=== PATIENT | male | born 1990 | race Caucasian/White ===

== ENCOUNTER 2016-08-17 21:06 | Inpatient (IN) | payer OTHER ==
--- NOTE | ~2016-08-17 | HP ---
Unit #: [id number] #: [id number] Patient: CASSIE BROWNE [id number] [facility] [address] [place] [address] [id number] I MR#: [id number] NAME: CASSIE BROWNE. ROOM: 73 Age: 25 Sex: M Admission Date: 08/18/2016 : 1990 Attending Physician: Jak Lopez M.D. Admitting Physician: Jka Lopez M.D. Primary Care Physician: Primary Care Physician No HISTORY AND PHYSICAL HISTORY OF PRESENT ILLNESS The patient is a 25-year-old man, who has been admitted to [facility] for suicidal ideation and detox from heroin, alcohol, meth, and Xanax. PAST MEDICAL HISTORY None. PAST SURGICAL HISTORY Sinus surgery. ALLERGIES No known drug allergies. MEDICATIONS 1. Amoxicillin 2. Clavulanate 500/125 mg p.o. b.i.d. FAMILY HISTORY Medically noncontributory. SOCIAL HISTORY The patient is unemployed and homeless. He endorses tobacco and some alcoholism, heroin, Xanax, and meth use. REVIEW OF SYSTEMS CONSTITUTIONAL: The patient denies fever and chills. HEENT: The patient denies any sore throat, ear pain or runny nose. CARDIOVASCULAR: The patient denies chest pain, irregular heart rhythm or palpitations. CHEST: The patient denies shortness of breath or cough. No hemoptysis. GASTROINTESTINAL: The patient denies diarrhea or chronic constipation, endorses nausea and vomiting. ENDOCRINE: Denies history of increased thirst or urination. No recent significant weight loss or gain. GENITOURINARY: Denies dysuria, frequency, or hematuria. SKIN: Denies any rashes. HEMATOLOGIC: Denies history of increased bleeding or bruising. MUSCULOSKELETAL: Denies any hot, swollen joints. No generalized muscle pain. NEUROLOGIC: Denies problems with vision or speech. No frequent, severe headaches. No numbness, tingling or weakness in any extremities. Denies loss of bladder or bowel control. Unit #: [id number] #: [id number] Patient: CASSIE BROWNE PHYSICAL EXAMINATION GENERAL: The patient is arousable in no acute distress. VITAL SIGNS: His vital signs are, temperature 98.5, heart rate 69, respirations 18, and blood pressure 111/64. WEIGHT: 140 pounds. HEIGHT: 6 feet. SKIN: Warm and dry without rash or lesion. HEENT: Head; Atraumatic and normocephalic. Pupils round and reactive. Extraocular movements are intact. No drainage from ears or nares. NECK: Supple. Trachea is midline. HEART: Regular rate and rhythm. LUNGS: Clear. ABDOMEN: Soft, nontender. Nondistended. : Not done. SKIN: Warm and dry without any unusual rashes, bruises. EXTREMITIES: No clubbing, edema, or cyanosis. NEUROLOGICAL: Cranial Nerves: II-XII intact. No focal deficits. Sensory and Motor Function: Grossly normal. Coordination: Gait is normal. Deep Tendon Reflexes: Intact. IMPRESSION Psychiatric admission. RECOMMENDATIONS Psychiatric, will be per psychiatrist. MEDICAL I see no contraindications to participating in facility's activities. MEDICAL PROGNOSIS Fair. MEDICAL CONDITION Stable. Dictated by... Calli Raza A.P.R.N. AM/rufus TD: 08/18/2016 10:48 JOB #: [id number] Unit #: [id number] #: [id number] Patient: CASSIE BROWNE HISTORY AND PHYSICAL Page 1 of 1 X Calli Raza APRN X HISTORY AND PHYSICAL
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
--- NOTE | ~2016-08-17 | DS ---
Unit #: [id number] #: [id number] Patient: CASSIE BROWNE [id number] [facility] [address] [place] [address] [id number] I MR#: [id number] NAME: CASSIE BROWNE. ROOM: 73 Age: 25 Sex: M Admission Date: 08/18/2016 : 1990 Discharge Date: 08/22/2016 Attending Physician: Jak Lopez M.D. Primary Care Physician: Primary Care Physician No DISCHARGE SUMMARY REASON FOR ADMISSION Detox. DIAGNOSTIC STUDIES LABORATORY RESULTS: Unremarkable. HOSPITAL COURSE The patient was admitted to inpatient unit on 08/18/2016 and discharged on 08/22/2016. The patient was treated with detox protocol, detox monitoring, psychotherapy, and chemical dependency group. The patient responded well with the above modalities of treatment and following medication. DISCHARGE MEDICATIONS Trazodone 50 mg at bedtime for sleep, Celexa 20 mg daily for depression, Seroquel 100 mg at bedtime for mood stabilization, and Motrin 600 mg t.i.d. p.r.n. for pain. DISCHARGE DIAGNOSES Psychiatric: Major depressive disorder, recurrent, recurrent, moderate to severe, F33.2; opioid use disorder, moderate, F11.20; and alcohol use disorder, moderate to severe, F10.20. Secondary diagnosis: Deferred. Medical diagnosis: None. Stressors: Psychosocial stressors. DISCHARGE INSTRUCTIONS The patient to follow up in outpatient clinic as per medical social consultant. CONDITION ON DISCHARGE The patient was pleasant and cooperative. Denied any psychotic symptom or any suicidal ideation. PROGNOSIS Guarded. DIET AND ACTIVITY As tolerated. Unit #: [id number] #: [id number] Patient: CASSIE BROWNE Dictated by... Jak Lopez M.D. SZC/sabrina TD: 08/22/2016 20:39 JOB #: [id number] DISCHARGE SUMMARY Page 1 of 1 X Jak Lopez MD X DISCHARGE SUMMARY
--- NOTE | ~2016-08-17 | PN ---
Unit #: [id number] #: [id number] Patient: CASSIE BROWNE [id number] [facility] [address] [place] [address] [id number] I MR#: [id number] NAME: CASSIE BROWNE. ROOM: 73 Age: 25 Sex: M Admission Date: 08/18/2016 : 1990 Attending Physician: Jak Lopez M.D. Admitting Physician: Jak Lopez M.D. Primary Care Physician: Primary Care Physician Syeda BAR NOTES DATE OF SERVICE: 08/20/2016 DISCUSSION Cassie is a 25-year-old male, seen on 08/20/2016. The patient interviewed, chart reviewed, obtained information from nursing staff. The patient compliant and cooperative, still reporting feeling anxious and nervous. Reports medication is helping. The patient still isolative, flat affect. REVIEW OF SYSTEMS Complete review of systems unremarkable. MENTAL STATUS EXAMINATION General appearance, the patient dressed casually. Attention span and concentration, fair. Oriented in place and person. Mood and affect, labile. Speech, monotone. Thought process, concrete. The patient denied any thoughts of harming self or others. Recent and remote memory, poor. Insight and judgment, poor. DIAGNOSES Major depressive disorder, recurrent; opioid use disorder, severe. ASSESSMENT AND PLAN Advised to continue with current medication and therapeutic protocol. If needed, consider further adjustment of medication. Dictated by... Brianne Gonzalez/sabrina TD: 08/20/2016 23:28 JOB #: [id number] Unit #: [id number] #: [id number] Patient: CASSIE BROWNE NICK PROGRESS NOTES Page 1 of 1 X Jak Lopez MD PROGRESS NOTE
--- NOTE | ~2016-08-17 | PN ---
Unit #: [id number] #: [id number] Patient: CASSIE BROWNE [id number] [facility] [address] [place] [address] [id number] I MR#: [id number] NAME: CASSIE BROWNE. ROOM: 73 Age: 25 Sex: M Admission Date: 08/18/2016 : 1990 Attending Physician: Jak Lopez M.D. Admitting Physician: Jak Lopez M.D. Primary Care Physician: Primary Care Physician Syeda [facility] PROGRESS NOTES DATE OF SERVICE: 08/21/2016 DISCUSSION Cassie Browne is a 25-year-old male, seen on 08/21/2016. The patient interviewed, chart reviewed, and obtained information from nursing staff. The patient reports making progress, still reporting nausea, sweating, anxiety, leg cramps, and runny nose. The patient was able to maintain safe behavior. Able to participate in group. REVIEW OF SYSTEMS Complete review of systems unremarkable. MENTAL STATUS EXAMINATION General appearance, the patient dressed casually. Attention span and concentration, fair. Oriented in place and person. Mood and affect, labile. Speech, monotone. Thought process, concrete. The patient denied any thoughts of harming self or others. Recent and remote memory, poor. Insight and judgment, poor. DIAGNOSES Mood disorder, not otherwise specified and opioid use disorder, severe. ASSESSMENT AND PLAN Advised to continue with current medication and therapeutic protocol. If needed, consider further adjustment of medication. Dictated by... Brianne Gonzalez/sabrina TD: 08/21/2016 18:11 JOB #: [id number] Unit #: [id number] #: [id number] Patient: CASSIE BROWNE PROGRESS NOTES Page 1 of 1 X Jak Lopez MD PROGRESS NOTE
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
--- NOTE | ~2016-08-17 | PN ---
Unit #: [id number] #: [id number] Patient: CASSIE FARLEY [id number] [facility] [address] [place] [address] [id number] MR#: [id number] NAME: CASSIE FARLEY. ROOM: 73 Age: 25 Sex: M Admission Date: 08/18/2016 : 1990 Attending Physician: Jak Lopez M.D. Admitting Physician: Brianne Gonzalez PROGRESS NOTES DATE OF SERVICE: 08/19/2016 DISCUSSION Mr. Cassie Farley is a 25-year-old male, seen on 08/19/2016. The patient interviewed, chart reviewed, and obtained information from nursing staff. The patient is compliant, cooperative. Mood is sad, dysphoric, flat affect, guarded. The patient is seclusive, passive SI. REVIEW OF SYSTEMS Complete review of systems is unremarkable. MENTAL STATUS EXAMINATION General appearance, the patient is dressed casually. Attention span and concentration, fair. Oriented in place and person. Mood and affect, labile. Speech, monotone. Thought process, concrete. The patient denied any thoughts of harming self or others. Recent and remote memory, poor. Insight and judgment, poor. DIAGNOSES 1. Mood disorder, not otherwise specified. 2. Alcohol use disorder, severe. 3. Opioid use disorder, severe. ASSESSMENT AND PLAN Advised to continue with current medication and therapeutic protocol. If needed, consider further adjustment of medication. Dictated by... Brianne Gonzalez/sabrina TD: 08/20/2016 15:09 JOB #: [id number] Unit #: [id number] #: [id number] Patient: CASSIE FARLEY NICK PROGRESS NOTES Page 1 of 1 X Jak Lopez MD PROGRESS NOTE
[~2016-08-17 21:06] MED LIST: ALBUTEROL17 GM INH; NO MEDICATIONS
[2016-08-22 09:39] LABS: URINE APPEARANCE CLEAR; URINE BILIRUBIN NEG (NEG); URINE BLOOD NEG (NEG); URINE COLOR DK YELLOW; URINE GLUCOSE NEG (NEG); URINE KETONE NEG (NEG); URINE LEUKOCYTE ESTERASE NEG (NEG); URINE NITRATE NEG (NEG); URINE PROTEIN NEG (NEG); URINE UROBILINOGEN 0.2 MG/DL (NEG)
== END 2016-08-22 12:48 | DRG 885 ==
LOC: P1E 08-18 01:15
PROVIDERS: Psychiatry & Neurology Psychiatry
DX: F33.2 Major depressive disorder, recurrent severe without psychotic features (principal); F11.20 Opioid dependence, uncomplicated; R45.851 Suicidal ideations; F10.20 Alcohol dependence, uncomplicated; Z56.0 Unemployment, unspecified; F17.210 Nicotine dependence, cigarettes, uncomplicated; Z59.0 Homelessness
CPT/HCPCS: 81003; 86592